=== PATIENT | female | born 1990 | race Caucasian/White ===

== ENCOUNTER → 2017-06-06 | Outpatient (CLI) | payer BC ==
[~2017-06-06] MED LIST: BCPILLS PO; LORA10CA2 PO; MONT1TAB3 PO
== END | disposition home or self-care (01) ==
LOC: C.PAPS 11:12
PROVIDERS: ATTEND Obstetrics & Gynecology
DX: Z01.419 Encounter for gynecological examination (general) (routine) without abnormal findings (principal)

== ENCOUNTER 2017-09-24 09:48 | Emergency (ER) | payer BC ==
[~2017-09-24] VITALS: Ht 180.3 cm; Wt 75.0 kg
[2017-09-24 09:52] VITALS: TEMP 36.8; Ht 180.3 cm; Wt 75.0 kg
[2017-09-24] MEDS ORDERED: OPTIRAY 320 IV PRN (11:00)
[2017-09-24 11:16] LABS: BASO ABS # 0.07 K/uL (0-0.2); EOS ABS # 0.21 K/uL (0-0.5); HEMATOCRIT 41.9 % (37-47); HEMOGLOBIN 14.5 g/dL (12.0-16.0); IG# 0.01 K/uL (0.00-0.02); LYMPH % 26.2 %; LYMPH ABS # 1.86 K/uL (1.2-3.4); MEAN CELL VOLUME 85.3 fL (80-100); MEAN CORPUSCULAR HEMOGLOBIN 29.5 pg (25-34); MEAN CORPUSCULAR HGB CONC 34.6 g/dl (32-36); MEAN PLATELET VOLUME 9.6 fL (7.4-10.4); MONO % 6.9 %; MONO ABS # 0.49 K/uL (0.11-0.59); NEUT % 62.8 %; NEUT ABS # 4.46 K/uL (1.4-6.5); PLATELET COUNT 341 K/uL (130-400); RED CELL DISTRIBUTION WIDTH CV 12.5 % (11.5-14.5); RED CELL DISTRIBUTION WIDTH SD 39.1 fL (36.4-46.3)
[2017-09-24] MEDS ORDERED: CETI10TA84 PO (11:24)
[2017-09-24 11:35] LABS: CREATININE 0.82 mg/dl (0.60-1.20); POTASSIUM 3.8 mmol/L (3.5-5.1)
[2017-09-24 12:21] VITALS: O2SAT 100
[2017-09-24] MEDS ORDERED: CEFTRIAXONE SOD INJ 1 GM ADDVIAL IV STA (12:46)
--- NOTE | 2017-09-24 12:56 | DIAGNOSTIC IMAGING REPORT ---
ORBIT CT WITH INTRAVENOUS CONTRAST HISTORY: Left periorbital swelling. EVAL L PERIORBITAL CELLULITIS TECHNIQUE: Multiaxial CT images of the orbits were performed reformatted in the coronal plane following the use of intravenous contrast. COMPARISON STUDY: None. FINDINGS: The visualized brain parenchyma is unremarkable. The globes and retrobulbar fat are intact. The optic nerves are normal in course and caliber. There is mild left periorbital soft tissue swelling. No loculated fluid collections to suggest an abscess. No radiopaque foreign bodies. Mild mucosal thickening within the ethmoid air cells. The mastoid air cells are clear. No bony erosions identified. The visualized brain parenchyma is unremarkable. IMPRESSION: Mild left periorbital soft tissue swelling suggestive of a cellulitis. No abscess identified. Electronically signed by: Willis Oakes M.D. 09/24/2017 12:55 PM Dictated Date/Time: 09/24/2017 12:35 PM
[2017-09-24] MEDS ORDERED: CEPH500C PO (13:30)
[2017-09-24] MEDS ORDERED: SULF800T23 PO (13:30)
--- NOTE | 2017-09-24 13:31 | EMERGENCY ROOM VISIT NOTE ---
ED Visit Note First contact with patient: 10:26 CHIEF COMPLAINT: Infection near her left eye 3 days HISTORY OF PRESENT ILLNESS: Patient is an otherwise healthy 27-year-old white female who presents the emergency department for evaluation of an infection near her left eye. She states that she noticed some redness and swelling lateral to the left eye about 3 days ago, and thought that she was developing a stye. She was applying warm compresses to the area. She had increased swelling , redness and tenderness the following day, which prompted [facility]. They placed her on erythromycin eye ointment which she has been applying as prescribed, with again worsening symptoms. She now has swelling inferior to the left eye. She does were contacts lenses, but has been wearing her glasses since her symptoms started. She denies any drainage or discharge from the area. Her vision is not effected overall. She denies any fever or chills. No prior history of skin infections or abscesses. REVIEW OF SYSTEMS: Review of systems as per HPI. All other systems reviewed were negative. At least 6 systems reviewed. PMH: Electronic medical records are reviewed and summarized as above/below. See Problem List. Tetanus is up-to-date. SOCIAL HISTORY: Patient lives at home with her boyfriend. She is employed. Nonsmoker. PHYSICAL EXAM: Vital Signs: Reviewed Nurse's notes. GENERAL: Patient is a pleasant, well-appearing 27-year-old white female who is awake and alert and in no acute distress. HEAD: Atraumatic, without temporal or scalp tenderness. EYES: PERRL, EOMI, no discharge or injection. No proptosis. EARS: Tympanic membranes intact, not inflamed, have normal contour. External canals clear. MOUTH: Mucous membranes moist, no lesions, tongue and gums appear normal. THROAT: No pharyngeal injection, exudates, or tonsillar hypertrophy. Airway is patent. NECK: Supple, nontender, she has some left sided pre-auricular lymphadenopathy noted. FACE: Patient has an area of redness, induration and slight abrasion noted lateral to the corner of the left eye. It is slightly warm to the touch, and is mildly tender to palpation. She has some swelling superior and inferior to the right eye, no redness or induration appreciated. NEUROLOGICAL: Alert and cooperative. Sensory and motor functions grossly intact. EMERGENCY DEPARTMENT COURSE: The patient was seen and evaluated as above. She appears to have a localized skin infection lateral to the left eye with some expected soft tissue swelling. She has been on a topical antibiotic eye ointment for the last several days with worsening symptoms. She does not have any fever, chills or malaise or constitutional signs of illness. Given the location of her infection, IV lock was initiated, CBC and BMP were collected, and CT scan of the orbits with IV contrast was performed to evaluate for infectious etiology. The patient was given ceftriaxone 1 g IV. Her white count was not elevated. Electrolytes are unremarkable. CT scan does note mild left periorbital soft tissue swelling, no loculated fluid collections to suspect abscess. Patient was reviewed with attending physician who agreed with the ED workup. It was felt that the patient could be safely treated with oral antibiotics and discharged home. She is on Keflex and Bactrim. She was educated on the worrisome signs or symptoms for which she should return to the emergency department. Patient was comfortable with this, and was discharged home with her boyfriend in good condition. Differential diagnoses entertained included preseptal versus periorbital cellulitis, facial cellulitis, abscess, contact dermatitis, among others. Medication reconciliation: I attest that I have personally reviewed the patient' s current medication list. Blood pressure screening : Patient was found to have normal blood pressure on screening and does not require follow-up. ORBIT CT WITH INTRAVENOUS CONTRAST HISTORY: Left periorbital swelling. EVAL L PERIORBITAL CELLULITIS TECHNIQUE: Multiaxial CT images of the orbits were performed reformatted in the coronal plane following the use of intravenous contrast. COMPARISON STUDY: None. FINDINGS: The visualized brain parenchyma is unremarkable. The globes and retrobulbar fat are intact. The optic nerves are normal in course and caliber. There is mild left periorbital soft tissue swelling. No loculated fluid collections to suggest an abscess. No radiopaque foreign bodies. Mild mucosal thickening within the ethmoid air cells. The mastoid air cells are clear. No bony erosions identified. The visualized brain parenchyma is unremarkable. IMPRESSION: Mild left periorbital soft tissue swelling suggestive of a cellulitis. No abscess identified. Problem List Medical Problems: (1) Migraines Status: Chronic (2) Orthostatic hypotension Status: Resolved (3) Orthostatic hypotension Status: Resolved (4) Vasovagal syncope Status: Resolved (5) Vasovagal syncope Status: Resolved (6) Vasovagal syncope Status: Resolved Current/Historical Medications Scheduled Control Pills ( Control Pills), 1 TAB PO DAILY Cephalexin Monohydrate (Keflex), 500 MG PO QID Cetirizine (Zyrtec), 10 MG PO DAILY Sulfa/Trimethoprim (Bactrim Ds 800MG/160MG), 1 TAB PO BID Allergies Coded Allergies: Amoxicillin (Verified Adverse Reaction, Unknown, vomiting/diarrhea, ) Clavulanic Acid (Verified Adverse Reaction, Unknown, vomiting/diarrhea, 07/30) Vital Signs Date Time Temp Pulse Resp B/P (MAP) Pulse Ox O2 Delivery O2 Flow Rate FiO2 09/24/17 13:34 56 20 114/70 09/24/17 12:21 65 20 109/54 100 09/24/17 09:52 36.8 100 18 107/67 94 Room Air Laboratory Results 09/24/17 10:55 Red Blood Count 4.91, Mean Corpuscular Volume 85.3, Mean Corpuscular Hemoglobin 29.5, Mean Corpuscular Hemoglobin Concent 34.6, Mean Platelet Volume 9.6, Neutrophils (%) (Auto) 62.8, Lymphocytes (%) (Auto) 26.2, Monocytes (%) (Auto) 6.9, Eosinophils (%) (Auto) 3.0, Basophils (%) (Auto) 1.0, Neutrophils # (Auto) 4.46, Lymphocytes # (Auto) 1.86, Monocytes # (Auto) 0.49, Eosinophils # (Auto) 0.21, Basophils # (Auto) 0.07 09/24/17 10:55 Test 09/24/17 10:55 White Blood Count 7.10 K/uL (4.8-10.8) Red Blood Count 4.91 M/uL (4.2-5.4) Hemoglobin 14.5 g/dL (12.0-16.0) Hematocrit 41.9 % (37-47) Mean Corpuscular Volume 85.3 fL (80-100) Mean Corpuscular Hemoglobin 29.5 pg (25-34) Mean Corpuscular Hemoglobin Concent 34.6 g/dl (32-36) Platelet Count 341 K/uL (130-400) Mean Platelet Volume 9.6 fL (7.4-10.4) Neutrophils (%) (Auto) 62.8 % Lymphocytes (%) (Auto) 26.2 % Monocytes (%) (Auto) 6.9 % Eosinophils (%) (Auto) 3.0 % Basophils (%) (Auto) 1.0 % Neutrophils # (Auto) 4.46 K/uL (1.4-6.5) Lymphocytes # (Auto) 1.86 K/uL (1.2-3.4) Monocytes # (Auto) 0.49 K/uL (0.11-0.59) Eosinophils # (Auto) 0.21 K/uL (0-0.5) Basophils # (Auto) 0.07 K/uL (0-0.2) RDW Standard Deviation 39.1 fL (36.4-46.3) RDW Coefficient of Variation 12.5 % (11.5-14.5) Immature Granulocyte % (Auto) 0.1 % Immature Granulocyte # (Auto) 0.01 K/uL (0.00-0.02) Anion Gap 5.0 mmol/L (3-11) Est Creatinine Clear Calc Drug Dose 117.2 ml/min Estimated GFR () 115.3 Estimated GFR (Non- 99.5 BUN/Creatinine Ratio 13.0 (10-20) Calcium Level 9.0 mg/dl (8.5-10.1) Medications Administered Medications (Trade) Dose Ordered Sig/Vlad Route Start Time Stop Time Status Last Admin Dose Admin Ceftriaxone Sodium (Rocephin Inj) 1 gm NOW STAT IV 09/24/17 12:46 09/24/17 12:47 DC 09/24/17 12:54 1 GM Departure Information Impression Primary Impression: Facial cellulitis Prescriptions Sulfa/Trimethoprim (Bactrim Ds 800MG/160MG) Tab 1 TAB PO BID, #20 TAB Prov: Tamera Cunningham PA 09/24/17 Cephalexin Monohydrate (Keflex) 500 Mg Cap 500 MG PO QID, #40 CAP Prov: Tamera Cunningham PA 09/24/17 Referrals [facility] (PCP) Patient Instructions My [facility] Additional Instructions Cephalexin(Keflex) 500mg: Take one pill four times daily for 10 days for your skin infection. All antibiotics can cause diarrhea. If this occurs and you feel worse or it does not resolve in 1-2 days follow up with your doctor or return to the Emergency Department as this could be signs of serious underlying problems. Any medication can cause an allergic reaction, stop the pills immediately and return to the ER for rash, hives, breathing difficulties, or swelling. Trimethoprim-Sulfamethoxazole(Bactrim DS): Take one pill twice daily for 10 days for your skin infection. All antibiotics can cause diarrhea. If this occurs and you feel worse or it does not resolve in 1-2 days follow up with your doctor or return to the Emergency Department as this could be signs of serious underlying problems. Any medication can cause an allergic reaction, stop the pills immediately and return to the ER for rash, hives, breathing difficulties, or swelling. Ibuprofen(Motrin, Advil) may be used for fever or pain. Use 600mg every six hours as needed. Take with food. Avoid using more than 2400mg in a 24 hour period. Do not use 2400mg per day for more than three consecutive days without physician direction. Prolonged inappropriate use can lead to stomach upset or ulcers. (AND/OR) Acetaminophen(Tylenol) may be used for fever or pain. Use 1000mg every six hours as needed. Avoid using more than 3000mg in a 24 hour period. Warm compresses to the affected area 4 times daily for 15-20 minutes. Rest and drink plenty of fluids. Continue current medications. Return to the ER for severe pain, persistent fevers, spreading redness, or any worsening of your condition. Follow up with your primary physician within 2-3 days for a recheck of the current condition.
[2017-09-24 13:34] VITALS: BP 114/70; PULSE 56
== END 2017-09-24 13:41 | disposition home or self-care (01) ==
LOC: C.EDB 09:49
DX: L03.211 Cellulitis of face (principal); G43.909 Migraine, unspecified, not intractable, without status migrainosus; Z79.3 Long term (current) use of hormonal contraceptives; Z79.899 Other long term (current) drug therapy; Z88.1 Allergy status to other antibiotic agents; Z88.8 Allergy status to other drugs, medicaments and biological substances